=== PATIENT | female | born 1950 | race Caucasian/White ===

== ENCOUNTER 2018-04-06 19:17 | Inpatient (IN) | payer MEDICARE, OTHER ==
[2018-04-06 20:03] LABS: BASOPHILS # (AUTO) 0.1 10^3/uL (0.0-0.1); BASOPHILS % (AUTO) 0.9 %; EOSINOPHILS # (AUTO) 0.2 10^3/uL (0.0-0.7); EOSINOPHILS % (AUTO) 1.7 %; HGB - HEMOGLOBIN 13.3 g/dL (12.0-16.0); LYMPHOCYTES # (AUTO) 1.7 10^3/uL (1.5-3.5); MEAN CORPUSCULAR HEMOGLOBIN 28.2 pg (27.0-31.0); MEAN CORPUSCULAR HGB CONC 34.3 g/dL (32.0-36.0); MEAN CORPUSCULAR VOLUME 82.1 fL (81.0-99.0); MEAN PLATELET VOLUME 6.5 fL (7.9-10.8); MONOCYTES # (AUTO) 0.7 10^3/uL (0.0-1.0); MONOCYTES % (AUTO) 5.5 %; NEUTROPHILS # (AUTO) 9.5 10^3/uL (1.5-6.6); NEUTROPHILS % (AUTO) 77.9 %; PLT - PLATELET COUNT 263 10^3/uL (130-450); RED BLOOD COUNT 4.72 10^6/uL (4.20-5.40); RED CELL DISTRIBUTION WIDTH 15.3 % (12.0-15.0); WHITE BLOOD COUNT 12.2 x10^3/uL (4.8-10.8)
[2018-04-06 20:09] LABS: INR 1.1 (0.8-1.2); PT - PROTHROMBIN TIME 12.4 secs (9.9-12.6)
[2018-04-06] MEDS ORDERED: OXYMETAZOLINE NASAL SPRAY NAS STA (20:22)
[2018-04-06] MEDS ORDERED: COCAINE 4 ML BOTTLE TOP STA (20:22)
[2018-04-06] MEDS ORDERED: BACITRACIN OINT TOP STA (20:32)
[2018-04-06] MEDS ORDERED: BACITRACIN OINT TOP ONE (20:33)
[2018-04-06] MEDS ORDERED: TRANEXAMIC ACID 1,000 MG in SODIUM CHLORIDE 0.9% 100ML 100 ML IV STA (21:50)
--- NOTE | 2018-04-06 22:09 | ED Physician Documentation ---
PD HPI HEENT - Stated complaint Stated Complaint: NOSE BLEED - Chief complaint Chief Complaint: Heent - History obtained from History obtained from: Patient - History of Present Illness Timing - onset: Today Timing - details: Abrupt onset Location: Nose Improves: Nothing Associated symptoms: No: Fever, Trismus, Unable to swallow Similar symptoms before: No diagnosis Recently seen: Emergency Dept - Additional information Additional information: 67-year-old female presents the emergency department for evaluation of a nosebleed which started earlier today. The patient has noticed bleeding from her left nose and then developed right nose bleeding. The bleeding had improved worse to return this evening. No lightheadedness or dizziness. No other associated symptoms.Symptoms are described as moderate. No triggering factors. No relieving factors Review of Systems Constitutional: denies: Fever Eyes: denies: Discharge Ears: denies: Ear pain Nose: reports: Epistaxis Throat: denies: Sore throat Cardiac: denies: Chest pain / pressure Respiratory: denies: Cough GI: denies: Abdominal Pain : denies: Dysuria Musculoskeletal: denies: Neck pain Neurologic: denies: Generalized weakness Immunocompromised: denies: Chemotherapy PD PAST MEDICAL HISTORY - Past Medical History Past Medical History: Yes Cardiovascular: Hypertension, High cholesterol Respiratory: Asthma Neuro: None Endocrine/Autoimmune: None GI: GERD SOURCING ANALYST: None : None HEENT: None Psych: Depression, Other Musculoskeletal: Chronic back pain Derm: Other drug resistant infections - Past Surgical History Past Surgical History: Yes General: Colonoscopy /SOURCING ANALYST: Tubal ligation, Hysterectomy - Present Medications Home Medications: Ambulatory Orders Medication Instructions Recorded Confirmed Aspirin 1 tab PO DAILY 04/06/18 04/06/18 - Allergies Allergies/Adverse Reactions: Allergies Allergy/AdvReac Type Severity Reaction Status Date / Time shrimp Allergy Unknown Verified 04/07/18 01:35 - Social History Does the pt smoke?: No Smoking Status: Never smoker Does the pt drink ETOH?: Yes Does the pt have substance abuse?: No - Immunizations Immunizations are current?: Yes - POLST Patient has POLST: No PD ED PE NORMAL - General General: Alert and oriented X 3, No acute distress - HEENT HEENT: Atraumatic, PERRL, EOMI, Ears normal, Other (The patient has a brisk bleed out of the left naris which appears to be anterior, there appears to be reflux blood into the right naris. There is blood in the posterior pharynx) - Cardiac Cardiac: Other (Regular tachycardia) - Respiratory Respiratory: No respiratory distress, Clear bilaterally - Derm Derm: Normal color - Extremities Extremities: No deformity - Neuro Neuro: Alert and oriented X 3, Normal speech - Psych Psych: Normal mood PD ED PE EXPANDED - HEENT HEENT: Right nares epsitaxis (The blood in the right nares appears to be reflux from the left), Left nares epistaxis Results - Vitals Vitals: Vital Signs - 24 hr 04/06/18 04/06/18 04/06/18 19:22 20:46 22:23 Temperature 37.2 C Heart Rate 125 H 111 H 110 H Respiratory 20 16 22 Rate Blood Pressure 185/107 H 189/115 H 183/115 H O2 Saturation 96 97 97 04/06/18 04/06/18 23:30 23:39 Temperature 36.4 C L Heart Rate 103 H 107 H Respiratory 18 27 H Rate Blood Pressure 163/89 H 152/93 H O2 Saturation 96 98 Oxygen O2 Source Room air - EKG (time done) No standard instances Rate: Rate (enter#) (101) Rhythm: Sinus tachycardia Intervals: Normal [place] QRS: Normal Ischemia: Normal ST segments - Labs Labs: Laboratory Tests 04/06/18 04/06/18 04/06/18 19:55 19:55 23:30 WBC 12.2 H 14.0 H RBC 4.72 4.54 Hgb 13.3 12.8 Hct 38.8 37.7 MCV 82.1 83.2 MCH 28.2 28.2 MCHC 34.3 33.9 RDW 15.3 H 15.3 H Plt Count 263 274 MPV 6.5 L 6.7 L Neut # (Auto) 9.5 H 10.1 H Lymph # (Auto) 1.7 2.5 Preston # (Auto) 0.7 1.1 H Eos # (Auto) 0.2 0.2 Baso # (Auto) 0.1 0.1 Absolute Nucleated RBC 0.00 0.01 Nucleated RBC % 0.0 0.0 PT 12.4 INR 1.1 APTT 26.7 Sodium Potassium Chloride Carbon Dioxide Anion Gap BUN Creatinine Estimated GFR (MDRD) Glucose Calcium Total Bilirubin AST ALT Alkaline Phosphatase Troponin I Total Protein Albumin Globulin Albumin/Globulin Ratio Lipase 04/06/18 04/06/18 23:30 23:30 WBC RBC Hgb Hct MCV MCH MCHC RDW Plt Count MPV Neut # (Auto) Lymph # (Auto) [place] # (Auto) Eos # (Auto) Baso # (Auto) Absolute Nucleated RBC Nucleated RBC % PT INR APTT Sodium 139 Potassium 3.2 L Chloride 104 Carbon Dioxide 27 Anion Gap 8.0 BUN 30 H Creatinine 0.7 Estimated GFR (MDRD) 84 L Glucose 153 H Calcium 9.3 Total Bilirubin 1.0 AST 19 ALT 21 Alkaline Phosphatase 97 Troponin I < 0.04 Total Protein 7.3 Albumin 3.5 Globulin 3.8 Albumin/Globulin Ratio 0.9 L Lipase 23 Procedures - Epistaxis Site: Both Preparation: Clots removed, Afrin, Clamp / pressure applied Treatment: Anterior rhinorocket, Packing inserted Other: Pt tolerated well PD MEDICAL DECISION MAKING - ED course ED course: The patient's nose was packed initially with a rapid Rhino, the patient continued to bleed despite the initial rapid Rhino. TXA was then applied to both naris and observed for 20 minutes. The nose was then packed with 2 rapid Rhino was in each naris. The patient's bleeding had stabilized. I was called to the patient's bedside. The patient appeared to have a syncopal episode. Prior to the syncopal episode the patient was feeling very lightheaded, nauseous. The patient unfortunately syncopized and had a loss of bladder. The patient denies any chest pain or palpitations during the event. Lab work was rechecked in addition to an EKG. It appears that the patient most likely had a vagal episode from swallowing blood from the nosebleed. Given the complicated course the patient will benefit from observation overnight in the hospital. The findings and plan were discussed the patient who understands and agrees to the plan. The case was discussed with the hospitalist who accepts the patient onto his service. Departure - Departure Disposition: ED Place in Observation Clinical Impression: Epistaxis Syncope Qualifiers: Syncope type: unspecified Qualified Code(s): R55 - Syncope and collapse Condition: Good Discharge Date/Time: 04/07/18 01:10
[2018-04-06] MEDS ORDERED: SODIUM CHLORIDE 0.9% 1,000 ML IV ONE (23:26)
[2018-04-06] MEDS ORDERED: ONDANSETRON 4 MG/2 ML VIAL IVP STA (23:26)
[2018-04-06 23:47] LABS: BASOPHILS # (AUTO) 0.1 10^3/uL (0.0-0.1); BASOPHILS % (AUTO) 0.8 %; EOSINOPHILS # (AUTO) 0.2 10^3/uL (0.0-0.7); EOSINOPHILS % (AUTO) 1.4 %; HGB - HEMOGLOBIN 12.8 g/dL (12.0-16.0); LYMPHOCYTES # (AUTO) 2.5 10^3/uL (1.5-3.5); MEAN CORPUSCULAR HEMOGLOBIN 28.2 pg (27.0-31.0); MEAN CORPUSCULAR HGB CONC 33.9 g/dL (32.0-36.0); MEAN CORPUSCULAR VOLUME 83.2 fL (81.0-99.0); MEAN PLATELET VOLUME 6.7 fL (7.9-10.8); MONOCYTES # (AUTO) 1.1 10^3/uL (0.0-1.0); MONOCYTES % (AUTO) 8.2 %; NEUTROPHILS # (AUTO) 10.1 10^3/uL (1.5-6.6); NEUTROPHILS % (AUTO) 71.6 %; PLT - PLATELET COUNT 274 10^3/uL (130-450); RED BLOOD COUNT 4.54 10^6/uL (4.20-5.40); RED CELL DISTRIBUTION WIDTH 15.3 % (12.0-15.0)
[2018-04-06 23:56] LABS: ALBUMIN 3.5 g/dL (3.2-5.5); ALBUMIN/GLOBULIN RATIO 0.9 (1.0-2.2); CALCIUM 9.3 mg/dL (8.5-10.3); CREATININE 0.7 mg/dL (0.4-1.0); TOTAL PROTEIN 7.3 g/dL (6.7-8.2)
[2018-04-07] MEDS ORDERED: PROCHLORPERAZINE 10 MG/2 ML VIAL IVP PRN (00:15)
[2018-04-07] MEDS ORDERED: PROMETHAZINE 25 MG/1 ML VIAL IM PRN (00:15)
[2018-04-07] MEDS ORDERED: ONDANSETRON 4 MG/2 ML VIAL IVP PRN (00:15)
[2018-04-07] MEDS ORDERED: SODIUM CHLORIDE FLUSH 0.9% 10 ML SYRINGE IVP PRN (00:15)
--- NOTE | 2018-04-07 00:20 | HISTORY & PHYSICAL EXAMINATION ---
Chief Complaint - Chief Complaint Chief Complaint: Nose bleed History of Present Illness - Admitted From Admitted From:: Emergency Department - History Obtained From Records Reviewed: Yes History obtained from: Patient and medical records Exam Limitations: None - History of Present Illness HPI Comment/Other: Patient is a very pleasant 67-year-old female with a past medical history significant for hypertension, hyperlipidemia, GERD, chronic joint pain, osteoarthritis and osteoporosis who presented to the emergency department with a chief complaint nosebleed. Patient states that she was in her normal state of health until this afternoon around 3 PM when she states that she had a sudden onset of a nosebleed. She states that she has had several nosebleeds in the past and once before it was severe enough that it caused her to go to the emergency department and get packing. She states that there was a constant flow of blood coming from her nose mixed in with clots. She states that it continued for nearly 4 hours before she came to the emergency department. She states that her came home around 4 PM and at that time they called the on-call nurse for and they had told her that they would get back to her in 20 minutes however it took about an hour and 20 minutes for them to get back to her. She states that at around 5 PM it seemed like it may have finally been slowing down as there were some small periods where the bleeding stopped. But she states that it then started back up and was again persistent. She states that when they talk to the nurse she told her to come to the emergency department. When the bleeding continued they finally decided to come to the emergency. The patient denies any headaches, focal neurologic deficits or trauma to her head or nose. The patient states that she takes aspirin but no other blood thinners. She states that she is never been diagnosed with a blood disorder. She denies any nasal congestion or any other upper respiratory symptoms. She denies picking her nose. Patient denies any sore throat, difficulty swallowing, fevers, chills, tinnitus, hearing loss, chest pain, shortness of air, orthopnea, PND, increased lower extremity swelling, abdominal pain, nausea, vomiting, diarrhea, constipation, joint pain, muscle aches, joint swelling, neck stiffness, recent unintentional weight loss, changes in her appetite, polyuria, polydipsia, skin changes, skin rash, petechiae, night sweats or any focal neurologic deficits. On presentation to the emergency department the patient was afebrile and tachycardic with a heart rate of 125. She was hypertensive with a blood pressure of 185/107 but was not otherwise in any respiratory distress. The patient was having significant epistaxis and was initially given tranexamic acid and Afrin in the emergency department. The patient did not respond to either and therefore was also given cocaine. Although the patient's epistaxis did appear to slow down it did not completely resolve therefore the patient had rhino packs placed in her nasal passages. With this the patient's bleeding ap peared to slow down. While the patient was sitting in the emergency room she began to feel nauseated and became diaphoretic. The patient's got her a trash can into which the patient spat out blood and then the describes the patient's head tilted back and she became unresponsive. When the nurse arrived to the patient's bedside she did a sternal rub and patient did not wake up but she was obviously breathing with snoring. She had a pulse. The patient slowly woke up over about a minute to a minute and a half. The patient appeared to have had a syncopal episode likely vasovagal. The patient underwent routine lab work which revealed a mild hypokalemia, and elevated blood glucose of 153 and a negative troponin. The patient's hemoglobin was initially 13.3 and then 12.2. The patient did have a mild leukocytosis. The patient's INR was normal. Given the patient's syncopal episode the patient was placed in observation for further monitoring to ensure that her hemoglobin does not drop further and that she does not have any further episodes of syncope. She will also get a workup for syncope. History - Past Medical History Cardiovascular: reports: Hypertension, High cholesterol Respiratory: reports: Asthma Neuro: reports: None Endocrine/Autoimmune: reports: None GI: reports: GERD PROCESSOR GRAIN: reports: None : reports: None HEENT: reports: None Psych: reports: Depression, Other Musculoskeletal: reports: Osteoarthritis, Osteoporosis, Chronic back pain Derm: reports: Other drug resistant infections MRSA Hx?: No - Past Surgical History General: reports: Colonoscopy /PROCESSOR GRAIN: reports: Tubal ligation, Hysterectomy - Family & Social History Family History: Mother: , COPD/Emphysema, Father: , Alcoholism, Other family: Diabetes, Type 2 (Grandmother) Family History Comment/Other: Father and half sister had rheumatoid arthritis Living arrangement: At home Living Situation: With spouse/s.o. Social History Notes: The patient currently lives in [place], [place] with her . They have been living on [facility] for the past 30 years. The patient is originally from [place], [place]. She has 3 children. 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 She has been to her for 48 years. Her is going to be retiring in June and she and her are going to be moving back to [place] at the beginning of this next year for their penitentiary. The patient was a former smoker smoked about a pack a day for over 30 years and quit 10 years ago. She drinks occasionally and denies any illicit drug use. - POLST Patient has POLST: No POLST Status: Full Code Meds/Allgy - Home Medications Home Medications: Ambulatory Orders Medication Instructions Recorded Confirmed Aspirin 1 tab PO DAILY 04/06/18 04/06/18 Ergocalciferol [Vitamin D2] 50,000 unit PO Q7D 04/07/18 04/07/18 Lisinopril 40 mg PO DAILY 04/07/18 04/07/18 Omeprazole 20 mg PO DAILY 04/07/18 04/07/18 Simvastatin 20 mg PO DAILY 04/07/18 04/07/18 traZODone [Desyrel] 100 mg PO HS 04/07/18 04/07/18 - Allergies Allergies/Adverse Reactions: Allergies Allergy/AdvReac Type Severity Reaction Status Date / Time shrimp Allergy Unknown Verified 04/07/18 01:35 Review of Systems - Other Findings Other Findings: A comprehensive review of systems was performed the pertinent positives and negatives are stated above in the HPI and the remainder of the review of systems is negative. Prior Level of Functionality: Able to perform all her activities of daily living independently Exam - Vital Signs Reviewed Vital Signs: Yes Vital Signs: Vital Signs x48h Temp Pulse Resp BP Pulse Ox 04/06/18 23:39 107 H 27 H 152/93 H 98 04/06/18 23:30 36.4 C L 103 H 18 163/89 H 96 04/06/18 22:23 110 H 22 183/115 H 97 04/06/18 20:46 111 H 16 189/115 H 97 04/06/18 19:22 37.2 C 125 H 20 185/107 H 96 - Physical Exam General Appearance: positive: No acute distress, Alert Eyes Bilateral: positive: Normal inspection, PERRL, EOMI, No lid inflammation, Conjunctivae nml, No scleral icterus ENT: positive: Pharynx nml, No signs of dehydration, Other (Both patient's nostrils are packed with Rhino packing and mildly saturated with blood) Neck: positive: Nml inspection, Thyroid nml, No JVD, Trachea midline. negative: Lymphadenopathy (R), Lymphadenopathy (L), Stiff neck, Carotid bruit, Tracheal deviation Respiratory: positive: Chest non-tender, No respiratory distress, Breath sounds nml. negative: Wheezes, Rales, Rhonchi Cardiovascular: positive: No murmur, No gallop, Tachycardia Peripheral Pulses: positive: 2+ Abdomen: positive: Non-tender, No organomegaly, Nml bowel sounds, No distention. negative: Guarding, Rebound, Hepatomegaly Back: positive: Nml inspection. negative: CVA tenderness (R), CVA tenderness (L) Skin: positive: Color nml, No rash, Warm, Dry. negative: Cyanosis, Pallor, Skin rash Extremities: positive: Non-tender, Full ROM, Nml appearance, No pedal edema Neurologic/Psychiatric: positive: Oriented x3, CN's nml (2-12), Motor nml, Sensation nml, Mood/affect nml Conclusion/Plan - Problem List (1) Syncope Conclusion/Plan: The patient had a syncopal episode in the emergency department after presenting with a nosebleed. It is likely given the description of the syncopal episode that the patient had a vasovagal syncope. However given her age and risk factors it was felt appropriate to place the patient in observation for monitoring and further workup. Plan: Monitor in observation Telemetry monitoring IV fluids Carotid Doppler Echocardiogram Monitor hemoglobin Qualifiers: Syncope type: unspecified Qualified Code(s): R55 - Syncope and collapse (2) Epistaxis Conclusion/Plan: The patient presented with severe epistaxis that was going on for nearly 4 hours prior to coming to the emergency department. The patient required tranexamic acid, Afrin, cocaine and finally a rhino packing to get the bleeding controlled. This is not the patient's first episode of epistaxis she has had a few episodes in the past including one that caused her to come to the emergency department. Plan: Continue rhino packing for 3-4 days Patient will need to follow-up with ENT given the recurrent nosebleeds. Monitor hemoglobin (3) Hypertension Conclusion/Plan: The patient has a history of hypertension but had run out of her lisinopril a few weeks ago and has not refilled it. On presentation to the emergency department the patient was very hypertensive with a blood pressure of 185/107. The association between hypertension and nosebleeds is uncertain even though the patient felt that her nosebleed was due to her blood pressure being uncontrolled. The patient will be restarted on her home dose of lisinopril and will continue to monitor her blood pressure and titrate medication as needed. Qualifiers: Hypertension type: essential hypertension Qualified Code(s): I10 - Essential (primary) hypertension (4) Hyperglycemia Conclusion/Plan: The patient denies any history of diabetes but on presentation to the emergency department her blood glucose is elevated at 153. We will check a hemoglobin A1c in the morning and monitor the patient's blood glucose daily. If the patient's A1c is elevated we will consider starting treatment for diabetes. (5) Hyperlipidemia Conclusion/Plan: The patient has a history of hyperlipidemia and takes a statin at home. We will continue her on statin while she is hospitalized here. Qualifiers: Hyperlipidemia type: unspecified Qualified Code(s): E78.5 - Hyperlipidemia, unspecified (6) Depression Conclusion/Plan: The patient has a history of depression and takes trazodone at home. The patient will be continued on her home dose of trazodone while she is hospitalized. Currently the patient's mood appears to be stable. Qualifiers: Depression Type: unspecified Qualified Code(s): F32.9 - Major depressive disorder, single episode, unspecified - Lab Results Lab results reviewed: Yes Fish Bones: 04/06/18 23:30 04/06/18 23:30 Other Lab Results: Laboratory Results WBC 14.0 x10^3/uL (4.8-10.8) H 04/06/18 23:30 RBC 4.54 10^6/uL (4.20-5.40) 04/06/18 23:30 Hgb 12.8 g/dL (12.0-16.0) 04/06/18 23:30 Hct 37.7 % (37.0-47.0) 04/06/18 23:30 MCV 83.2 fL (81.0-99.0) 04/06/18 23:30 MCH 28.2 pg (27.0-31.0) 04/06/18 23:30 MCHC 33.9 g/dL (32.0-36.0) 04/06/18 23:30 RDW 15.3 % (12.0-15.0) H 04/06/18 23:30 Plt Count 274 10^3/uL (130-450) 04/06/18 23:30 MPV 6.7 fL (7.9-10.8) L 04/06/18 23:30 Neut # (Auto) 10.1 10^3/uL (1.5-6.6) H 04/06/18 23:30 Lymph # (Auto) 2.5 10^3/uL (1.5-3.5) 04/06/18 23:30 [place] # (Auto) 1.1 10^3/uL (0.0-1.0) H 04/06/18 23:30 Eos # (Auto) 0.2 10^3/uL (0.0-0.7) 04/06/18 23:30 Baso # (Auto) 0.1 10^3/uL (0.0-0.1) 04/06/18 23:30 Absolute Nucleated RBC 0.01 x10^3/uL 04/06/18 23:30 Nucleated RBC % 0.0 /100WBC 04/06/18 23:30 PT 12.4 secs (9.9-12.6) 04/06/18 19:55 INR 1.1 (0.8-1.2) 04/06/18 19:55 APTT 26.7 secs (24.9-33.3) 04/06/18 19:55 Sodium 139 mmol/L (135-145) 04/06/18 23:30 Potassium 3.2 mmol/L (3.5-5.0) L 04/06/18 23:30 Chloride 104 mmol/L (101-111) 04/06/18 23:30 Carbon Dioxide 27 mmol/L (21-32) 04/06/18 23:30 Anion Gap 8.0 (6-13) 10/18/18 23:30 BUN 30 mg/dL (6-20) H 04/06/18 23:30 Creatinine 0.7 mg/dL (0.4-1.0) 04/06/18 23:30 Estimated GFR (MDRD) 84 (>89) L 04/06/18 23:30 Glucose 153 mg/dL (70-100) H 04/06/18 23:30 Calcium 9.3 mg/dL (8.5-10.3) 04/06/18 23:30 Total Bilirubin 1.0 mg/dL (0.2-1.0) 04/06/18 23:30 AST 19 IU/L (10-42) 04/06/18 23:30 ALT 21 IU/L (10-60) 04/06/18 23:30 Alkaline Phosphatase 97 IU/L (42-121) 04/06/18 23:30 Troponin I < 0.04 ng/mL (<0.49) 04/06/18 23:30 Total Protein 7.3 g/dL (6.7-8.2) 04/06/18 23:30 Albumin 3.5 g/dL (3.2-5.5) 04/06/18 23:30 Globulin 3.8 g/dL (2.1-4.2) 04/06/18 23:30 Albumin/Globulin Ratio 0.9 (1.0-2.2) L 04/06/18 23:30 Lipase 23 U/L (22-51) 04/06/18 23:30 - EKG Results EKG Interpreted Independently: Yes EKG Findings: EKG showed sinus tachycardia with no ST elevations or ischemic changes Core Measures - Anticipated LOS I expect patient to be DC'd or transferred within 96 hours.: Yes - DVT/VTE - Prophylaxis VTE/DVT Device ordered at admit?: Yes
[2018-04-07] MEDS ORDERED: SODIUM CHLORIDE 0.9% 1,000 ML IV SCH (01:00)
[2018-04-07] MEDS: SODIUM CHLORIDE FLUSH 0.9% 10 ML SYRINGE IVP SCH ×3 (01:35→16:04)
[2018-04-07] MEDS: traZODone 50 MG TABLET PO SCH ×2 (03:34→20:53)
--- NOTE | 2018-04-07 04:00 | Ultrasound Report ---
Reason: Syncope Procedure Date: 04/07/2018 Accession Number: [id number] / [id number] Procedure: US - Carotid Doppler Complete CPT Code: FULL RESULT: EXAM: BILATERAL CAROTID AND VERTEBRAL ARTERY DUPLEX DOPPLER ULTRASOUND: EXAM DATE: 04/07/2018 01:22 AM CLINICAL HISTORY: Syncope. COMPARISON: None. TECHNIQUE: Grayscale imaging, color Doppler, and duplex spectral Doppler were used to evaluate the carotid and vertebral arteries bilaterally. Static images were obtained. FINDINGS: Mild smooth plaque is seen in the right internal carotid artery. Moderate calcified plaque is seen in the left internal carotid artery. Normal antegrade flow is present in bilateral vertebral arteries. VELOCITIES (cm/sec): Right CCA mid: PSV 100.8 cm/sec CCA dist: PSV 52.3 cm/sec ICA prox: PSV 90.3 cm/sec, EDV 26.2 cm/sec ICA mid: PSV 75.9 cm/sec, EDV 22.9 cm/sec ICA dist: PSV 41.9 cm/sec, EDV 14.7 cm/sec ECA: PSV 102 cm/sec Vert: PSV 58.2 cm/sec ICA/CCA: 1.7 Left CCA mid: PSV 99.5 cm/sec CCA dist: PSV 100 cm/sec ICA prox: PSV 92.9 cm/sec, EDV 35.2 cm/sec ICA mid: PSV 142.7 cm/sec, EDV 32.8 cm/sec ICA dist: PSV 93.5 cm/sec, EDV 11.4 cm/sec ECA: PSV 105.6 cm/sec Vert: PSV 77.9 cm/sec ICA/CCA: 0.9 ICA diameter stenosis: Right: <50% by velocity and <70% by NASCET criteria. Left: 50-69% by velocity. IMPRESSION: 1. There is bilateral carotid artery plaquing, left greater than right. 2. In the right carotid artery there are no elevated carotid artery velocities to suggest hemodynamically significant stenosis. 3. Mildly elevated velocity in the left mid internal carotid artery suggesting 50-69% stenosis. 4. Normal antegrade flow is present in bilateral vertebral arteries. General Recommendations: Stenosis =50% ICA - Follow-up ultrasound 6-12 months Stenosis <50% ICA - High Risk Patient with plaque - Follow-up ultrasound 1-2 years Normal Study but High Risk Patient - Follow-up ultrasound 3-5 years Management recommendations and diagnostic criteria are based on current IAC endorsed standards in Carotid Artery Stenosis: Grayscale and Doppler Ultrasound Diagnosis. Validated velocity measurements with angiographic measurements and velocity criteria are extrapolated from diameter data as defined by the Society of Radiologists in Ultrasound Consensus Conference Radiology 2003; 229;340-346. RADIA
[2018-04-07 05:46] LABS: BASOPHILS # (AUTO) 0.1 10^3/uL (0.0-0.1); EOSINOPHILS # (AUTO) 0.1 10^3/uL (0.0-0.7); EOSINOPHILS % (AUTO) 0.5 %; HGB - HEMOGLOBIN 11.1 g/dL (12.0-16.0); LYMPHOCYTES # (AUTO) 1.7 10^3/uL (1.5-3.5); MEAN CORPUSCULAR HEMOGLOBIN 27.8 pg (27.0-31.0); MEAN CORPUSCULAR HGB CONC 33.3 g/dL (32.0-36.0); MEAN CORPUSCULAR VOLUME 83.7 fL (81.0-99.0); MEAN PLATELET VOLUME 6.6 fL (7.9-10.8); MONOCYTES # (AUTO) 0.8 10^3/uL (0.0-1.0); MONOCYTES % (AUTO) 7.1 %; NEUTROPHILS # (AUTO) 8.7 10^3/uL (1.5-6.6); NEUTROPHILS % (AUTO) 76.4 %; PLT - PLATELET COUNT 226 10^3/uL (130-450); RED CELL DISTRIBUTION WIDTH 15.3 % (12.0-15.0); WHITE BLOOD COUNT 11.4 x10^3/uL (4.8-10.8)
[2018-04-07 05:56] LABS: ALBUMIN 3.1 g/dL (3.2-5.5); ALBUMIN/GLOBULIN RATIO 0.9 (1.0-2.2); BILIRUBIN,TOTAL 0.4 mg/dL (0.2-1.0); CALCIUM 8.7 mg/dL (8.5-10.3); CREATININE 0.6 mg/dL (0.4-1.0); MAGNESIUM 1.8 mg/dL (1.7-2.8); PHOSPHORUS 3.3 mg/dL (2.5-4.6); TOTAL PROTEIN 6.5 g/dL (6.7-8.2)
[2018-04-07 06:12] LABS: INR 1.2 (0.8-1.2)
[2018-04-07 07:21] LABS: HB2 TOTAL 11.4 g/dL; HEMOGLOBIN A1C 0.43 g/dL; HEMOGLOBIN A1C % 5.6 % (4.6-6.2)
[2018-04-07] MEDS ORDERED: NON FORMULARY MED (Simvastatin [Simvastatin] 20 MG) PO SCH (09:00)
[2018-04-07] MEDS: LISINOPRIL 20 MG TABLET PO SCH (09:41)
[2018-04-07] MEDS: ATORVASTATIN 10 MG TABLET PO SCH (09:42)
[2018-04-07] MEDS: POLYETHYLENE GLYCOL 3350 17 GM PACKET PO SCH (09:43)
[2018-04-07] MEDS: FAMOTIDINE 20 MG TABLET PO SCH ×2 (09:43→20:54)
[2018-04-07] MEDS ORDERED: SODIUM CHLORIDE 0.9% 500 ML IV SCH (11:37)
[2018-04-07 15:12] LABS: HGB - HEMOGLOBIN 11.4 g/dL (12.0-16.0)
--- NOTE | 2018-04-07 15:59 | PROVIDER PROGRESS NOTE ---
Assessment/Plan - Problem List (1) Epistaxis Assessment/Plan: The R nares has an anterior pack. The left nares has a posterior pack (per her RN checking what her procedure was in the ER). Since a posterior pack has chance of complications like sinusitis and may need CT imaging, she will need to stay an additional 2 days. Will change her to inpatient status. Monitor packs for bleeding. Plan to remove packs in 3-4 days. Monitor CBC this afternoon, then q12-24 h. (2) Syncope Qualifiers: Syncope type: unspecified Qualified Code(s): R55 - Syncope and collapse Assessment/Plan: Echo showed normal LVEF and PA pressure. Carotid Doppler showed mild-moderate plaque. Telemetry showed no arrhythmias. Will check orthostatic VS. Most likely is a vasovagal syncope, as the description was of vagal prodrome (nauseated, nahomi (3) Hypertension Qualifiers: Hypertension type: essential hypertension Qualified Code(s): I10 - Essential (primary) hypertension Assessment/Plan: Continue Lisinopril while here, unless she is orthostatic during postural VS checks. (4) Depression Qualifiers: Depression Type: unspecified Qualified Code(s): F32.9 - Major depressive disorder, single episode, unspecified Assessment/Plan: Continue Trazadone while here (5) Hyperlipidemia Qualifiers: Hyperlipidemia type: unspecified Qualified Code(s): E78.5 - Hyperlipidemia, unspecified Assessment/Plan: Continue statin while here - Current Meds Current Meds: Current Medications Generic Name Dose Route Start Last Admin Trade Name Freq PRN Reason Stop Dose Admin Atorvastatin Calcium 10 mg 04/07/18 09:00 04/07/18 09:42 Lipitor PO 10 mg DAILY PASQUALE Administration Famotidine 20 mg 04/07/18 09:00 04/07/18 09:43 Pepcid PO 20 mg BID PASQUALE Administration Sodium Chloride 500 mls @ 30 mls/hr 04/07/18 11:37 04/07/18 14:58 Normal Saline 0.9% IV Not Given .[id number] PASQUALE Lisinopril 40 mg 04/07/18 09:00 04/07/18 09:41 Zestril PO 40 mg DAILY PASQUALE Administration Polyethylene Glycol 17 gm 04/07/18 09:00 04/07/18 09:43 Miralax PO 17 gm DAILY PASQUALE Administration Sodium Chloride 10 ml 04/07/18 01:00 04/07/18 09:43 Normal Saline Flush 0.9% IVP Not Given 0100,0900,1700 PASQUALE Trazodone HCl 100 mg 04/07/18 04:00 04/07/18 03:34 Desyrel PO Not Given HS PASQUALE - Lab Result Fish Bone Diagrams: 04/07/18 15:03 04/07/18 05:35 - Additional Planning My Orders: My Active Orders 04/07/18 11:37 Sodium Chloride 0.9% [Normal Saline 0.9%] 500 ml IV 30 mls/hr 04/07/18 11:39 Postural [Vital Signs - Orthostatic] [RC] QSHIFT Subjective - Subjective Patient Reports: Feeling Better, Other (Eyes are tearing) Objective Vital Signs: Vital Signs - 24 hr 04/06/18 04/06/18 04/06/18 19:22 20:46 22:23 Temperature 37.2 C Heart Rate 125 H 111 H 110 H Heart Rate [ Brachial] Heart Rate [ Sitting (After 1 Minute)] Heart Rate [ Standing (After 1 Minute)] Heart Rate [ Supine] Respiratory 20 16 22 Rate Blood Pressure 185/107 H 189/115 H 183/115 H Blood Pressure [Left Brachial artery] Blood Pressure [Sitting (After 1 Minute)] Blood Pressure [Standing ( After 1 Minute) ] Blood Pressure [Supine] O2 Saturation 96 97 97 04/06/18 04/06/18 04/07/18 23:30 23:39 00:18 Temperature 36.4 C L Heart Rate 103 H 107 H 103 H Heart Rate [ Brachial] Heart Rate [ Sitting (After 1 Minute)] Heart Rate [ Standing (After 1 Minute)] Heart Rate [ Supine] Respiratory 18 27 H 17 Rate Blood Pressure 163/89 H 152/93 H 168/88 H Blood Pressure [Left Brachial artery] Blood Pressure [Sitting (After 1 Minute)] Blood Pressure [Standing ( After 1 Minute) ] Blood Pressure [Supine] O2 Saturation 96 98 95 04/07/18 04/07/18 04/07/18 01:05 01:25 04:47 Temperature 36.7 C 36.7 C Heart Rate 109 H Heart Rate [ 107 H 102 H Brachial] Heart Rate [ Sitting (After 1 Minute)] Heart Rate [ Standing (After 1 Minute)] Heart Rate [ Supine] Respiratory 12 18 18 Rate Blood Pressure 157/87 H Blood Pressure 131/85 H 144/85 H [Left Brachial artery] Blood Pressure [Sitting (After 1 Minute)] Blood Pressure [Standing ( After 1 Minute) ] Blood Pressure [Supine] O2 Saturation 94 96 95 04/07/18 04/07/18 04/07/18 08:00 13:21 13:36 Temperature 37.2 C 37.1 C Heart Rate Heart Rate [ 116 H 118 H Brachial] Heart Rate [ 118 H Sitting (After 1 Minute)] Heart Rate [ 120 H Standing (After 1 Minute)] Heart Rate [ 112 H Supine] Respiratory 20 19 Rate Blood Pressure Blood Pressure 141/75 H 144/69 H [Left Brachial artery] Blood Pressure 151/88 H [Sitting (After 1 Minute)] Blood Pressure 163/90 H [Standing ( After 1 Minute) ] Blood Pressure 150/76 H [Supine] O2 Saturation 94 97 04/07/18 15:34 Temperature Heart Rate Heart Rate [ 111 H Brachial] Heart Rate [ Sitting (After 1 Minute)] Heart Rate [ Standing (After 1 Minute)] Heart Rate [ Supine] Respiratory 20 Rate Blood Pressure Blood Pressure 145/81 H [Left Brachial artery] Blood Pressure [Sitting (After 1 Minute)] Blood Pressure [Standing ( After 1 Minute) ] Blood Pressure [Supine] O2 Saturation 93 Oxygen O2 Source Room air I&O (Last 24 Hrs): Intake and Output Totals x24h 04/05/18 04/06/18 04/07/18 23:59 23:59 23:59 Intake Total 110 2400 Balance 110 2400 General: Alert HEENT: Other (Bilateral nares have packs) Neck: Supple, No JVD Neuro: Non Focal Cardiovascular: Regular rate Respiratory: No respiratory distress Abdomen: Soft Extremities: No edema - Results Results: Laboratory Results WBC 11.4 x10^3/uL (4.8-10.8) H 04/07/18 05:35 RBC 4.00 10^6/uL (4.20-5.40) L 04/07/18 05:35 Hgb 11.4 g/dL (12.0-16.0) L 04/07/18 15:03 Hct 34.0 % (37.0-47.0) L 04/07/18 15:03 MCV 83.7 fL (81.0-99.0) 04/07/18 05:35 MCH 27.8 pg (27.0-31.0) 04/07/18 05:35 MCHC 33.3 g/dL (32.0-36.0) 04/07/18 05:35 RDW 15.3 % (12.0-15.0) H 04/07/18 05:35 Plt Count 226 10^3/uL (130-450) 04/07/18 05:35 MPV 6.6 fL (7.9-10.8) L 04/07/18 05:35 Neut # (Auto) 8.7 10^3/uL (1.5-6.6) H 04/07/18 05:35 Lymph # (Auto) 1.7 10^3/uL (1.5-3.5) 04/07/18 05:35 [place] # (Auto) 0.8 10^3/uL (0.0-1.0) 04/07/18 05:35 Eos # (Auto) 0.1 10^3/uL (0.0-0.7) 04/07/18 05:35 Baso # (Auto) 0.1 10^3/uL (0.0-0.1) 04/07/18 05:35 Absolute Nucleated RBC 0.00 x10^3/uL 04/07/18 05:35 Nucleated RBC % 0.0 /100WBC 04/07/18 05:35 PT 13.0 secs (9.9-12.6) H 04/07/18 05:35 INR 1.2 (0.8-1.2) 04/07/18 05:35 APTT 26.7 secs (24.9-33.3) 04/06/18 19:55 Sodium 141 mmol/L (135-145) 04/07/18 05:35 Potassium 3.6 mmol/L (3.5-5.0) 04/07/18 05:35 Chloride 109 mmol/L (101-111) 04/07/18 05:35 Carbon Dioxide 25 mmol/L (21-32) 04/07/18 05:35 Anion Gap 7.0 (6-13) 04/07/18 05:35 BUN 29 mg/dL (6-20) H 04/07/18 05:35 Creatinine 0.6 mg/dL (0.4-1.0) 04/07/18 05:35 Estimated GFR (MDRD) 100 (>89) 04/07/18 05:35 Glucose 126 mg/dL (70-100) H 04/07/18 05:35 Glycated Hemoglobin 5.6 % (4.6-6.2) 04/07/18 05:35 Estim Average Glucose 114 (70-100) H 04/07/18 05:35 Lactic Acid 0.7 mmol/L (0.5-2.2) 04/07/18 05:35 Calcium 8.7 mg/dL (8.5-10.3) 04/07/18 05:35 Phosphorus 3.3 mg/dL (2.5-4.6) 04/07/18 05:35 Magnesium 1.8 mg/dL (1.7-2.8) 04/07/18 05:35 Total Bilirubin 0.4 mg/dL (0.2-1.0) 04/07/18 05:35 AST 16 IU/L (10-42) 04/07/18 05:35 ALT 19 IU/L (10-60) 04/07/18 05:35 Alkaline Phosphatase 92 IU/L (42-121) 04/07/18 05:35 Troponin I < 0.04 ng/mL (<0.49) 04/07/18 05:35 B-Natriuretic Peptide 16 pg/mL (5-100) 04/07/18 05:35 Total Protein 6.5 g/dL (6.7-8.2) L 04/07/18 05:35 Albumin 3.1 g/dL (3.2-5.5) L 04/07/18 05:35 Globulin 3.4 g/dL (2.1-4.2) 04/07/18 05:35 Albumin/Globulin Ratio 0.9 (1.0-2.2) L 04/07/18 05:35 Lipase 23 U/L (22-51) 04/06/18 23:30
[2018-04-07] MEDS: ACETAMINOPHEN 325 MG TABLET PO PRN (16:03)
[2018-04-07] MEDS ORDERED: METOPROLOL TARTRATE 25 MG TABLET PO ONE (16:06)
[2018-04-07] MEDS: FERROUS GLUCONATE 324 MG TABLET PO SCH (20:53)
[2018-04-07] MEDS: oxyCODONE 5 MG TABLET PO PRN (22:41)
[2018-04-08] MEDS: SODIUM CHLORIDE FLUSH 0.9% 10 ML SYRINGE IVP SCH ×3 (00:37→15:39)
[2018-04-08 06:38] LABS: BASOPHILS # (AUTO) 0.1 10^3/uL (0.0-0.1); BASOPHILS % (AUTO) 0.5 %; EOSINOPHILS # (AUTO) 0.4 10^3/uL (0.0-0.7); EOSINOPHILS % (AUTO) 3.9 %; HGB - HEMOGLOBIN 10.7 g/dL (12.0-16.0); LYMPHOCYTES # (AUTO) 2.4 10^3/uL (1.5-3.5); LYMPHOCYTES % (AUTO) 20.8 %; MEAN CORPUSCULAR HEMOGLOBIN 28.1 pg (27.0-31.0); MEAN CORPUSCULAR HGB CONC 33.2 g/dL (32.0-36.0); MEAN CORPUSCULAR VOLUME 84.7 fL (81.0-99.0); MONOCYTES # (AUTO) 0.8 10^3/uL (0.0-1.0); MONOCYTES % (AUTO) 7.4 %; NEUTROPHILS # (AUTO) 7.7 10^3/uL (1.5-6.6); NEUTROPHILS % (AUTO) 67.4 %; PLT - PLATELET COUNT 207 10^3/uL (130-450); RED BLOOD COUNT 3.79 10^6/uL (4.20-5.40); RED CELL DISTRIBUTION WIDTH 15.4 % (12.0-15.0); WHITE BLOOD COUNT 11.4 x10^3/uL (4.8-10.8)
[2018-04-08 07:06] LABS: CHOL/HDL RATIO 5.3 (<4.4); CHOLESTEROL 169 mg/dL; HDL CHOLESTEROL 32 mg/dL; LDL CHOLESTEROL,CALCULATED 102 mg/dL; LDL/HDL RATIO 3.2 (<4.4); VLDL CHOLESTEROL 35 mg/dL
[2018-04-08] MEDS: POLYETHYLENE GLYCOL 3350 17 GM PACKET PO SCH (07:32)
[2018-04-08] MEDS: LISINOPRIL 20 MG TABLET PO SCH (08:52)
[2018-04-08] MEDS: FAMOTIDINE 20 MG TABLET PO SCH ×2 (08:52→19:59)
[2018-04-08] MEDS: ATORVASTATIN 10 MG TABLET PO SCH (08:52)
[2018-04-08] MEDS: FERROUS GLUCONATE 324 MG TABLET PO SCH ×2 (08:53→19:59)
--- NOTE | 2018-04-08 15:19 | PROVIDER PROGRESS NOTE ---
Assessment/Plan - Problem List (1) Epistaxis Assessment/Plan: The anterior rhinopak fell out yesterday. L posterio tom remains in place. H/H are stable. No transfusion needed. Fe Gluconate was started yesterday. She will need ENT F/U as outpt. (2) Syncope Qualifiers: Syncope type: unspecified Qualified Code(s): R55 - Syncope and collapse Assessment/Plan: No significant orthostasis. Echo essentially normal. No dysrhythmias on telemetry. It appears she had a vasovagal cause of her syncope (but she was not on telemetry at the moment of syncope in the ER, to document a bradycardic spell). (3) Hypertension Qualifiers: Hypertension type: essential hypertension Qualified Code(s): I10 - Essential (primary) hypertension Assessment/Plan: BP improved on meds. Will adjust diet to low salt. (4) Depression Qualifiers: Depression Type: unspecified Qualified Code(s): F32.9 - Major depressive disorder, single episode, unspecified Assessment/Plan: Continue home antidepressant (5) Hyperlipidemia Qualifiers: Hyperlipidemia type: mixed hyperlipidemia Qualified Code(s): E78.2 - Mixed hyperlipidemia Assessment/Plan: LDL is 102, on a statin. Triglycerides are 177, despite no DM, but her glu have been elevated since admission. Will start a low-carb diet. I discussed recommendations for a low-carb, low fat, high HDL diet with Pt and family in room. Hypertriglyceridemia may also need outpt management with Fibrates. - Current Meds Current Meds: Current Medications Generic Name Dose Route Start Last Admin Trade Name Alyce PRN Reason Stop Dose Admin Acetaminophen 650 mg 04/07/18 00:15 04/07/18 16:03 Tylenol PO 650 mg Q4HR PRN Administration Pain 1 to 4 Atorvastatin Calcium 10 mg 04/07/18 09:00 04/08/18 08:52 Lipitor PO 10 mg DAILY PASQUALE Administration Famotidine 20 mg 04/07/18 09:00 04/08/18 08:52 Pepcid PO 20 mg BID PASQUALE Administration Ferrous Gluconate 324 mg 04/07/18 21:00 04/08/18 08:53 Fergon PO 324 mg BID PASQUALE Administration Sodium Chloride 500 mls @ 30 mls/hr 04/07/18 11:37 04/07/18 14:58 Normal Saline 0.9% IV Not Given .[id number] PASQUALE Lisinopril 40 mg 04/07/18 09:00 04/08/18 08:52 Zestril PO 40 mg DAILY PASQUALE Administration Oxycodone HCl 5 mg 04/07/18 00:15 04/07/18 22:41 Roxicodone PO 5 mg Q4HR PRN Administration Pain 5 to 7 Polyethylene Glycol 17 gm 04/07/18 09:00 04/08/18 07:32 Miralax PO Not Given DAILY PASQUALE Sodium Chloride 10 ml 04/07/18 01:00 04/08/18 07:33 Normal Saline Flush 0.9% IVP Not Given 0100,0900,1700 PASQUALE Trazodone HCl 100 mg 04/07/18 04:00 04/07/18 20:53 Desyrel PO 100 mg HS PASQUALE Administration - Lab Result Fish Bone Diagrams: 04/08/18 06:06 04/07/18 05:35 - Additional Planning My Orders: My Active Orders 04/07/18 21:00 Ferrous Gluconate [Fergon] 324 mg PO BID 04/08/18 Dinner DIET [Carb-controlled Diet] [DIET] 04/09/18 05:00 CBC - COMP BLD CT W/AUTO DIFF [HEME] DAILYLAB Subjective - Subjective Patient Reports: Feeling Better Nursing Reports: Other (Suctioning blood clots and mucous from throat and nasopharynx) Objective Vital Signs: Vital Signs - 24 hr 04/07/18 04/07/18 04/07/18 15:34 16:26 18:00 Temperature Heart Rate [ 111 H Brachial] Heart Rate [ 80 Sitting (After 1 Minute)] Heart Rate [ Standing (After 1 Minute)] Heart Rate [ Supine] Respiratory 20 Rate Blood Pressure 145/81 H Blood Pressure 145/81 H [Left Brachial artery] Blood Pressure 117/64 [Sitting (After 1 Minute)] Blood Pressure 123/54 L [Standing ( After 1 Minute) ] Blood Pressure [Supine] O2 Saturation 93 04/07/18 04/07/18 04/08/18 20:23 23:40 06:25 Temperature 36.7 C 36.4 C L 36.7 C Heart Rate [ 80 79 88 Brachial] Heart Rate [ 95 Sitting (After 1 Minute)] Heart Rate [ 86 Standing (After 1 Minute)] Heart Rate [ 88 Supine] Respiratory 18 16 18 Rate Blood Pressure Blood Pressure 117/64 112/54 L 138/47 H [Left Brachial artery] Blood Pressure 152/72 H [Sitting (After 1 Minute)] Blood Pressure 145/112 H [Standing ( After 1 Minute) ] Blood Pressure 138/47 H [Supine] O2 Saturation 95 94 95 04/08/18 04/08/18 04/08/18 08:11 08:12 13:15 Temperature 36.8 C 36.1 C L Heart Rate [ 85 100 Brachial] Heart Rate [ 88 Sitting (After 1 Minute)] Heart Rate [ 90 Standing (After 1 Minute)] Heart Rate [ 85 Supine] Respiratory 20 19 Rate Blood Pressure Blood Pressure 132/61 H 133/66 H [Left Brachial artery] Blood Pressure 121/66 [Sitting (After 1 Minute)] Blood Pressure 124/74 [Standing ( After 1 Minute) ] Blood Pressure 132/61 H [Supine] O2 Saturation 93 95 Oxygen O2 Source Room air I&O (Last 24 Hrs): Intake and Output Totals x24h 04/06/18 04/07/18 04/08/18 23:59 23:59 23:59 Intake Total 110 3290 715 Balance 110 3290 715 General: Alert, Oriented x3, No acute distress HEENT: Other (L nares is packed, pack is bloody) Neck: Supple, No JVD Neuro: Non Focal Cardiovascular: Regular rate Respiratory: No respiratory distress Abdomen: Soft Extremities: No edema - Results Results: Laboratory Results WBC 11.4 x10^3/uL (4.8-10.8) H 04/08/18 06:06 RBC 3.79 10^6/uL (4.20-5.40) L 04/08/18 06:06 Hgb 10.7 g/dL (12.0-16.0) L 04/08/18 06:06 Hct 32.1 % (37.0-47.0) L 04/08/18 06:06 MCV 84.7 fL (81.0-99.0) 04/08/18 06:06 MCH 28.1 pg (27.0-31.0) 04/08/18 06:06 MCHC 33.2 g/dL (32.0-36.0) 04/08/18 06:06 RDW 15.4 % (12.0-15.0) H 04/08/18 06:06 Plt Count 207 10^3/uL (130-450) 04/08/18 06:06 MPV 7.0 fL (7.9-10.8) L 04/08/18 06:06 Neut # (Auto) 7.7 10^3/uL (1.5-6.6) H 04/08/18 06:06 Lymph # (Auto) 2.4 10^3/uL (1.5-3.5) 04/08/18 06:06 [place] # (Auto) 0.8 10^3/uL (0.0-1.0) 04/08/18 06:06 Eos # (Auto) 0.4 10^3/uL (0.0-0.7) 04/08/18 06:06 Baso # (Auto) 0.1 10^3/uL (0.0-0.1) 04/08/18 06:06 Absolute Nucleated RBC 0.01 x10^3/uL 04/08/18 06:06 Nucleated RBC % 0.0 /100WBC 04/08/18 06:06 PT 13.0 secs (9.9-12.6) H 04/07/18 05:35 INR 1.2 (0.8-1.2) 04/07/18 05:35 APTT 26.7 secs (24.9-33.3) 04/06/18 19:55 Sodium 141 mmol/L (135-145) 04/07/18 05:35 Potassium 3.6 mmol/L (3.5-5.0) 04/07/18 05:35 Chloride 109 mmol/L (101-111) 04/07/18 05:35 Carbon Dioxide 25 mmol/L (21-32) 04/07/18 05:35 Anion Gap 7.0 (6-13) 04/07/18 05:35 BUN 29 mg/dL (6-20) H 04/07/18 05:35 Creatinine 0.6 mg/dL (0.4-1.0) 04/07/18 05:35 Estimated GFR (MDRD) 100 (>89) 04/07/18 05:35 Glucose 126 mg/dL (70-100) H 04/07/18 05:35 Glycated Hemoglobin 5.6 % (4.6-6.2) 04/07/18 05:35 Estim Average Glucose 114 (70-100) H 04/07/18 05:35 Lactic Acid 0.7 mmol/L (0.5-2.2) 04/07/18 05:35 Calcium 8.7 mg/dL (8.5-10.3) 04/07/18 05:35 Phosphorus 3.3 mg/dL (2.5-4.6) 04/07/18 05:35 Magnesium 1.8 mg/dL (1.7-2.8) 04/07/18 05:35 Total Bilirubin 0.4 mg/dL (0.2-1.0) 04/07/18 05:35 AST 16 IU/L (10-42) 04/07/18 05:35 ALT 19 IU/L (10-60) 04/07/18 05:35 Alkaline Phosphatase 92 IU/L (42-121) 04/07/18 05:35 Troponin I < 0.04 ng/mL (<0.49) 04/07/18 05:35 B-Natriuretic Peptide 16 pg/mL (5-100) 04/07/18 05:35 Total Protein 6.5 g/dL (6.7-8.2) L 04/07/18 05:35 Albumin 3.1 g/dL (3.2-5.5) L 04/07/18 05:35 Globulin 3.4 g/dL (2.1-4.2) 04/07/18 05:35 Albumin/Globulin Ratio 0.9 (1.0-2.2) L 04/07/18 05:35 Triglycerides 177 mg/dL (-149) H 04/08/18 06:06 Cholesterol 169 mg/dL (-199) 04/08/18 06:06 LDL Cholesterol, Calc 102 mg/dL (-129) 04/08/18 06:06 VLDL Cholesterol 35 mg/dL 04/08/18 06:06 HDL Cholesterol 32 mg/dL (60-) L 04/08/18 06:06 LDL/HDL Ratio 3.2 (<4.4) 04/08/18 06:06 Cholesterol/HDL Ratio 5.3 (<4.4) 04/08/18 06:06 Lipase 23 U/L (22-51) 04/06/18 23:30 TSH 1.16 uIU/mL (0.34-5.60) 04/08/18 06:06
[2018-04-08] MEDS: traZODone 50 MG TABLET PO SCH (19:59)
[2018-04-09] MEDS: SODIUM CHLORIDE FLUSH 0.9% 10 ML SYRINGE IVP SCH ×3 (01:17→15:44)
[2018-04-09 06:48] LABS: BASOPHILS # (AUTO) 0.1 10^3/uL (0.0-0.1); BASOPHILS % (AUTO) 0.8 %; EOSINOPHILS # (AUTO) 0.3 10^3/uL (0.0-0.7); EOSINOPHILS % (AUTO) 2.5 %; HGB - HEMOGLOBIN 10.9 g/dL (12.0-16.0); LYMPHOCYTES # (AUTO) 1.5 10^3/uL (1.5-3.5); LYMPHOCYTES % (AUTO) 14.1 %; MEAN CORPUSCULAR HEMOGLOBIN 28.6 pg (27.0-31.0); MEAN CORPUSCULAR HGB CONC 33.9 g/dL (32.0-36.0); MEAN CORPUSCULAR VOLUME 84.2 fL (81.0-99.0); MEAN PLATELET VOLUME 7.2 fL (7.9-10.8); MONOCYTES % (AUTO) 8.9 %; NEUTROPHILS # (AUTO) 7.9 10^3/uL (1.5-6.6); NEUTROPHILS % (AUTO) 73.7 %; PLT - PLATELET COUNT 202 10^3/uL (130-450); RED CELL DISTRIBUTION WIDTH 15.1 % (12.0-15.0); WHITE BLOOD COUNT 10.7 x10^3/uL (4.8-10.8)
[2018-04-09] MEDS: LISINOPRIL 20 MG TABLET PO SCH (08:33)
[2018-04-09] MEDS: FAMOTIDINE 20 MG TABLET PO SCH ×2 (08:33→20:22)
[2018-04-09] MEDS: ATORVASTATIN 10 MG TABLET PO SCH (08:33)
[2018-04-09] MEDS: POLYETHYLENE GLYCOL 3350 17 GM PACKET PO SCH (08:34)
[2018-04-09] MEDS: FERROUS GLUCONATE 324 MG TABLET PO SCH ×2 (08:34→20:22)
[2018-04-09] MEDS: ACETAMINOPHEN 325 MG TABLET PO PRN (09:07)
[2018-04-09] MEDS: oxyCODONE 5 MG TABLET PO PRN (16:09)
--- NOTE | 2018-04-09 18:55 | PROVIDER PROGRESS NOTE ---
Assessment/Plan - Problem List (1) Epistaxis Assessment/Plan: No new complaints regarding the ant-posterior nasal pack on L side. The R sidwd anterior tom fell out on its own. Will monitor for several days due to posterior pack needing to be in place 3 days. No fever or headache. (2) Syncope Qualifiers: Syncope type: unspecified Qualified Code(s): R55 - Syncope and collapse Assessment/Plan: Vasovagal etiology as no other identifiable cause was found and the prodrome was vagal. (3) Hypertension Qualifiers: Hypertension type: essential hypertension Qualified Code(s): I10 - Essential (primary) hypertension Assessment/Plan: Pt on her home meds (4) Depression Qualifiers: Depression Type: unspecified Qualified Code(s): F32.9 - Major depressive disorder, single episode, unspecified Assessment/Plan: Pt on her home meds (5) Hyperlipidemia Qualifiers: Hyperlipidemia type: mixed hyperlipidemia Qualified Code(s): E78.2 - Mixed hyperlipidemia Assessment/Plan: Pt on her home statin med. We previously discussed need for better triglyceride control, starting with a low-carb diet, Pt is motivated to follow a stricter diet. - Current Meds Current Meds: Current Medications Generic Name Dose Route Start Last Admin Trade Name Freq PRN Reason Stop Dose Admin Acetaminophen 650 mg 04/07/18 00:15 04/09/18 09:07 Tylenol PO 650 mg Q4HR PRN Administration Pain 1 to 4 Atorvastatin Calcium 10 mg 04/07/18 09:00 04/09/18 08:33 Lipitor PO 10 mg DAILY PASQUALE Administration Famotidine 20 mg 04/07/18 09:00 04/09/18 08:33 Pepcid PO 20 mg BID PASQUALE Administration Ferrous Gluconate 324 mg 04/07/18 21:00 04/09/18 08:34 Fergon PO 324 mg BID PASQUALE Administration Lisinopril 40 mg 04/07/18 09:00 04/09/18 08:33 Zestril PO 40 mg DAILY PASQUALE Administration Oxycodone HCl 5 mg 04/07/18 00:15 04/09/18 16:09 Roxicodone PO 5 mg Q4HR PRN Administration Pain 5 to 7 Polyethylene Glycol 17 gm 04/07/18 09:00 04/09/18 08:34 Miralax PO 17 gm DAILY PASQUALE Administration Sodium Chloride 10 ml 04/07/18 01:00 04/09/18 15:44 Normal Saline Flush 0.9% IVP Not Given 0100,0900,1700 PASQUALE Trazodone HCl 100 mg 04/07/18 04:00 04/08/18 19:59 Desyrel PO 100 mg HS PASQUALE Administration - Lab Result Fish Bone Diagrams: 04/10/18 11:25 04/07/18 05:35 Subjective - Subjective Patient Reports: Feeling Better Nursing Reports: No Complaints Objective Vital Signs: Vital Signs - 24 hr 04/08/18 04/08/18 04/09/18 20:09 23:47 06:40 Temperature 36.9 C 36.7 C 37.0 C Heart Rate [ 100 95 93 Brachial] Respiratory 20 20 18 Rate Blood Pressure 144/58 H 145/66 H 148/77 H [Right Brachial artery] O2 Saturation 96 95 94 04/09/18 04/09/18 07:35 13:31 Temperature 36.8 C 36.7 C Heart Rate [ 101 H 103 H Brachial] Respiratory 16 18 Rate Blood Pressure 158/84 H 103/46 L [Right Brachial artery] O2 Saturation 94 95 Oxygen O2 Source Room air I&O (Last 24 Hrs): Intake and Output Totals x24h 04/07/18 04/08/18 04/09/18 23:59 23:59 23:59 Intake Total 3290 1135 650 Balance 3290 1135 650 General: Alert, Oriented x3 HEENT: Other (L pack in place) Neck: Supple Neuro: Non Focal Cardiovascular: Regular rate, No murmurs Respiratory: No respiratory distress, Breath sounds nml Extremities: No edema - Results Results: Laboratory Results WBC 10.7 x10^3/uL (4.8-10.8) 04/09/18 06:10 RBC 3.80 10^6/uL (4.20-5.40) L 04/09/18 06:10 Hgb 10.9 g/dL (12.0-16.0) L 04/09/18 06:10 Hct 32.0 % (37.0-47.0) L 04/09/18 06:10 MCV 84.2 fL (81.0-99.0) 04/09/18 06:10 MCH 28.6 pg (27.0-31.0) 04/09/18 06:10 MCHC 33.9 g/dL (32.0-36.0) 04/09/18 06:10 RDW 15.1 % (12.0-15.0) H 04/09/18 06:10 Plt Count 202 10^3/uL (130-450) 04/09/18 06:10 MPV 7.2 fL (7.9-10.8) L 04/09/18 06:10 Neut # (Auto) 7.9 10^3/uL (1.5-6.6) H 04/09/18 06:10 Lymph # (Auto) 1.5 10^3/uL (1.5-3.5) 04/09/18 06:10 [place] # (Auto) 1.0 10^3/uL (0.0-1.0) 04/09/18 06:10 Eos # (Auto) 0.3 10^3/uL (0.0-0.7) 04/09/18 06:10 Baso # (Auto) 0.1 10^3/uL (0.0-0.1) 04/09/18 06:10 Absolute Nucleated RBC 0.01 x10^3/uL 04/09/18 06:10 Nucleated RBC % 0.1 /100WBC 04/09/18 06:10 PT 13.0 secs (9.9-12.6) H 04/07/18 05:35 INR 1.2 (0.8-1.2) 04/07/18 05:35 APTT 26.7 secs (24.9-33.3) 04/06/18 19:55 Sodium 141 mmol/L (135-145) 04/07/18 05:35 Potassium 3.6 mmol/L (3.5-5.0) 04/07/18 05:35 Chloride 109 mmol/L (101-111) 04/07/18 05:35 Carbon Dioxide 25 mmol/L (21-32) 04/07/18 05:35 Anion Gap 7.0 (6-13) 04/07/18 05:35 BUN 29 mg/dL (6-20) H 04/07/18 05:35 Creatinine 0.6 mg/dL (0.4-1.0) 04/07/18 05:35 Estimated GFR (MDRD) 100 (>89) 04/07/18 05:35 Glucose 126 mg/dL (70-100) H 04/07/18 05:35 Glycated Hemoglobin 5.6 % (4.6-6.2) 04/07/18 05:35 Estim Average Glucose 114 (70-100) H 04/07/18 05:35 Lactic Acid 0.7 mmol/L (0.5-2.2) 04/07/18 05:35 Calcium 8.7 mg/dL (8.5-10.3) 04/07/18 05:35 Phosphorus 3.3 mg/dL (2.5-4.6) 04/07/18 05:35 Magnesium 1.8 mg/dL (1.7-2.8) 04/07/18 05:35 Total Bilirubin 0.4 mg/dL (0.2-1.0) 04/07/18 05:35 AST 16 IU/L (10-42) 04/07/18 05:35 ALT 19 IU/L (10-60) 04/07/18 05:35 Alkaline Phosphatase 92 IU/L (42-121) 04/07/18 05:35 Troponin I < 0.04 ng/mL (<0.49) 04/07/18 05:35 B-Natriuretic Peptide 16 pg/mL (5-100) 04/07/18 05:35 Total Protein 6.5 g/dL (6.7-8.2) L 04/07/18 05:35 Albumin 3.1 g/dL (3.2-5.5) L 04/07/18 05:35 Globulin 3.4 g/dL (2.1-4.2) 04/07/18 05:35 Albumin/Globulin Ratio 0.9 (1.0-2.2) L 04/07/18 05:35 Triglycerides 177 mg/dL (-149) H 04/08/18 06:06 Cholesterol 169 mg/dL (-199) 04/08/18 06:06 LDL Cholesterol, Calc 102 mg/dL (-129) 04/08/18 06:06 VLDL Cholesterol 35 mg/dL 04/08/18 06:06 HDL Cholesterol 32 mg/dL (60-) L 04/08/18 06:06 LDL/HDL Ratio 3.2 (<4.4) 04/08/18 06:06 Cholesterol/HDL Ratio 5.3 (<4.4) 04/08/18 06:06 Lipase 23 U/L (22-51) 04/06/18 23:30 TSH 1.16 uIU/mL (0.34-5.60) 04/08/18 06:06 ABX Reporting Has patient been on IV antibiotics over the past 48 hours?: No
[2018-04-09] MEDS: traZODone 50 MG TABLET PO SCH (20:22)
[2018-04-10] MEDS: SODIUM CHLORIDE FLUSH 0.9% 10 ML SYRINGE IVP SCH ×2 (01:20→08:34)
[2018-04-10] MEDS: LISINOPRIL 20 MG TABLET PO SCH (08:34)
[2018-04-10] MEDS: FAMOTIDINE 20 MG TABLET PO SCH (08:34)
[2018-04-10] MEDS: FERROUS GLUCONATE 324 MG TABLET PO SCH (08:34)
[2018-04-10] MEDS: ATORVASTATIN 10 MG TABLET PO SCH (08:34)
[2018-04-10] MEDS: POLYETHYLENE GLYCOL 3350 17 GM PACKET PO SCH (08:34)
[2018-04-10] MEDS: ACETAMINOPHEN 325 MG TABLET PO PRN ×2 (08:35→12:36)
[2018-04-10 11:51] VITALS: BP 111/61
[2018-04-10 11:58] LABS: BASOPHILS # (AUTO) 0.1 10^3/uL (0.0-0.1); BASOPHILS % (AUTO) 0.8 %; EOSINOPHILS # (AUTO) 0.3 10^3/uL (0.0-0.7); EOSINOPHILS % (AUTO) 2.9 %; HGB - HEMOGLOBIN 10.6 g/dL (12.0-16.0); LYMPHOCYTES # (AUTO) 1.7 10^3/uL (1.5-3.5); LYMPHOCYTES % (AUTO) 14.5 %; MEAN CORPUSCULAR HEMOGLOBIN 28.6 pg (27.0-31.0); MEAN CORPUSCULAR HGB CONC 34.3 g/dL (32.0-36.0); MEAN CORPUSCULAR VOLUME 83.5 fL (81.0-99.0); MEAN PLATELET VOLUME 7.1 fL (7.9-10.8); MONOCYTES # (AUTO) 1.2 10^3/uL (0.0-1.0); MONOCYTES % (AUTO) 10.5 %; NEUTROPHILS # (AUTO) 8.2 10^3/uL (1.5-6.6); NEUTROPHILS % (AUTO) 71.3 %; PLT - PLATELET COUNT 242 10^3/uL (130-450); RED BLOOD COUNT 3.69 10^6/uL (4.20-5.40); RED CELL DISTRIBUTION WIDTH 15.2 % (12.0-15.0); WHITE BLOOD COUNT 11.5 x10^3/uL (4.8-10.8)
--- NOTE | 2018-04-10 12:42 | Discharge Plan ---
Discharge Plan Disposition: 01 Home, Self Care Condition: Stable Prescriptions: Ferrous Gluconate 324 mg PO BID 30 Days #60 tablet Diet: Diabetic Activity Restrictions: Activity as Tolerated Shower Restrictions: No Driving Restrictions: No Instruction Topics: ED Nasal Packing Anterior Removable, Nosebleeds Ch Additional Instructions or Follow Up instructions: You were admitted after a nosebleed required you to have nasal packing. Since you get recurrent nosebleeds, you should have evaluation by an ENT specialist, after getting a referral from your PCP. Your hemoglobin dropped due to the bleeding. You did not require a blood transfusion, but you have been put on Iron replacement. Please start taking the new prescription for Iron which was ordered. Iron pills can cause constipation, therefore drink fluids and eat high fiber foods to help with constipation. See you PCP in follow-up for a blood test and office visit in the next week. Your blood tests showed that you may be pre-diabetic. You should talk to your PCP about this and stay on a stricter low-sugar, low-starch diet, which will help you lose weight too. Resume all your pre-hospital medications. If you have new or worsening symptoms, come to the ER. No Smoking: If you smoke, Please STOP! Call for help. Follow-up with: YIN RIOS [Primary Care Provider] -
--- NOTE | 2018-04-17 02:02 | DISCHARGE SUMMARY ---
Physician: Genet Nuñez MD DATE OF ADMISSION: 04/07/2018 DATE OF DISCHARGE: 04/10/2018 HISTORY OF PRESENT ILLNESS: This is a 67-year-old, white female with a history of obesity, hypertens ion, asthma, hyperlipidemia, GERD, DJD, depression, who has had several nosebleeds in the past. The patient presented with a severe nosebleed that was not stopped for hours. She presented to the [facility] ency room. She denied any headaches, trauma, has never had a blood disorder. The patient required a nasal packing because of the severe epistaxis. The right side got an anterior pack, the left side g ot an anterior and posterior pack. She was admitted for management of this. In the emergency room, she also had a sudden episode of dizziness, nausea and vomiting of clots of blood, and then her head tilted back and she became unresponsive. She was not on telemetry at this time. A nurse came in and did a sternal rub, and she woke up in about a minute and a half. She had blood tests done at [facility], which revealed hypokalemia, negative troponin, a small drop in her hemoglobin, and she was ther efore admitted for management of all the above. HOSPITAL COURSE AND DISCHARGE DIAGNOSES 1. Epistaxis. The patient had no further nosebleeds. The nose packs were in place for 2-3 days. T he anterior pack on the right side fell out after day 2, the left side fell out after day 3. She was monitored for approximately 1 hour after the left-sided pack spontaneously came out and there were n o further episodes of epistaxis, and she was discharged home. She was advised to see her PCP for a r eferral to an ENT because of the recurrent nosebleeds. 2. Syncope. The patient was on telemetry and had no episodes of dysrhythmias. She had troponins x3 , which were normal. An echo was done that showed normal LV size and function, EF 65% to 70%, normal RV size and function. Because her prodrome was that of vomiting, it was felt that her episode was v asovagal. 3. Hypertension. The patient was kept on her blood pressure medicines while here. 4. Depression. The patient was kept on her medicines while here. 5. Hyperlipidemia. The patient had blood tests done that showed a total cholesterol of 169, LDL of 102, triglycerides 177 and HDL of 32. I reviewed better diet restrictions for the patient to decreas e her triglycerides and increase her HDL, and the patient appeared motivated to follow these recommen dations. LABORATORIES AND IMAGING: Reviewed and summarized above. ALLERGIES: SHRIMP. MEDICATIONS AT THE TIME OF DISCHARGE 1. Baby aspirin daily. 2. Vitamin D3 50,000 units, unknown frequency. 3. Lisinopril 40 mg daily. 4. Omeprazole 20 mg b.i.d. 5. Simvastatin 20 mg every night. 6. Desyrel 100 mg every night. 7. Iron gluconate was started 324 mg p.o. b.i.d. CONDITION AT DISCHARGE: Stable. PHYSICAL EXAMINATION VITAL SIGNS: Blood pressure 111/61, pulse of 88. HEENT: Unremarkable. NECK: Without JVD or carotid bruits. CHEST: Clear. HEART: Sounds normal. ABDOMEN: Soft, obese. No organomegaly. EXTREMITIES: No clubbing, cyanosis, or edema. NEUROLOGIC: Intact. FOLLOWUP: With her PCP in the next 1 week and referral to an ENT is advised. CODE STATUS: FULL CODE. TIME REQUIRED TO COMPLETE THIS ENTIRE DISCHARGE, CHART REVIEW, PATIENT EDUCATION, DICTATION: Thirty minutes. cc: Isaac Kumari TD: 04/17/2018 01:43
== END 2018-04-10 14:06 | disposition home or self-care (01) | DRG 151 ==
LOC: ED 19:17 → MS2 04-07 00:15 → OBSVTOIN 04-07 14:25
PROVIDERS: ADMIT Internal Medicine; ATTEND Internal Medicine
DX: R04.0 Epistaxis (principal); Z68.41 Body mass index [BMI] 40.0-44.9, adult; R55 Syncope and collapse; T46.4X6A Underdosing of angiotensin-converting-enzyme inhibitors, initial encounter; R73.9 Hyperglycemia, unspecified; R00.0 Tachycardia, unspecified; E78.5 Hyperlipidemia, unspecified; I10 Essential (primary) hypertension; F32.9 Major depressive disorder, single episode, unspecified; M81.0 Age-related osteoporosis without current pathological fracture; Z87.891 Personal history of nicotine dependence; Z79.82 Long term (current) use of aspirin; Z91.138 Patient's unintentional underdosing of medication regimen for other reason; E78.2 Mixed hyperlipidemia; E87.6 Hypokalemia; E66.9 Obesity, unspecified; K21.9 Gastro-esophageal reflux disease without esophagitis; Z79.899 Other long term (current) drug therapy
CPT/HCPCS: 30901; 36415; 80053; 80061; 83036; 83605; 83690; 83721; 83735; 83880; 84100; 84443; 84484; 85014; 85018; 85025; 85610; 85730; 93005; 93306; 93880; 96361; 96365; 96375; 99284